=== PATIENT | female | born 1945 | race Two or more races ===

== ENCOUNTER 2020-05-02 18:28 | Emergency (ER) | payer SELFPAY ==
[~2020-05-02] VITALS: Ht 157.5 cm; Wt 61.0 kg
[2020-05-02] MEDS ORDERED: LOSA25TA26 PO (18:37)
[2020-05-02 19:54] LABS: CHLORIDE 107 mEq/L (98-107)
[2020-05-02] MEDS ORDERED: MAGNESIUM 2 G PREMIX 50 ML IV NR (20:00)
[2020-05-02] MEDS ORDERED: POTASSIUM CHLORIDE 20MEQ TABLET SR PO NR ×2 (20:00→22:00)
[2020-05-02 20:11] LABS: BASOPHILS % 0.7 % (0.0-2.0); EOSINOPHILS % 0.4 % (0.0-5.0); HEMATOCRIT. 37.3 % (36.0-48.0); HEMOGLOBIN. 13.2 g/dL (12.0-16.0); LYMPHOCYTES % 34.8 % (20.0-50.0); MEAN CORPUSCULAR HEMOGLOBIN 30.8 pg (28.0-32.0); MEAN CORPUSCULAR VOLUME 87.4 fL (81.0-99.0); MEAN PLATELET VOLUME 8.3 fl (7.4-10.4); MONOCYTES % 11.8 % (2.0-8.0); NEUTROPHILS % 52.3 % (40.0-76.0); PLATELET 371 x1000/uL (130-400); RED BLOOD CELL COUNT 4.27 mill/uL (4.2-5.4); RED CELL DISTRIBUTION WIDTH 14.2 % (11.6-14.6)
[2020-05-02] MEDS ORDERED: ONDANSETRON HCL 4MG/2ML INJ IV PRN (20:15)
[2020-05-02] MEDS ORDERED: CLONIDINE 0.1MG TABLET PO PRN (20:15)
[2020-05-02] MEDS ORDERED: ACETAMINOPHEN 325MG TABLET PO PRN (20:15)
[2020-05-02] MEDS ORDERED: TRAZODONE HCL 50MG TABLET PO PRN (20:15)
[2020-05-02] MEDS ORDERED: HEPARIN 5000 UNITS/ML VIAL SUBCUT SCH (21:00)
[2020-05-02] MEDS: LOSARTAN POTASSIUM 25 MG TABLET PO SCH (21:00)
[2020-05-02] MEDS: KCL 10MEQ/50ML PREMIX 50 ML IV SCH ×3 (21:22→23:00)
[2020-05-03] MEDS: KCL 10MEQ/50ML PREMIX 50 ML IV SCH
[2020-05-03 06:25] LABS: BASOPHILS % 1.4 % (0.0-2.0); EOSINOPHILS % 0.5 % (0.0-5.0); HEMATOCRIT. 37.7 % (36.0-48.0); HEMOGLOBIN. 13.3 g/dL (12.0-16.0); LYMPHOCYTES % 32.7 % (20.0-50.0); MEAN CORPUSCULAR HEMOGLOBIN 31.1 pg (28.0-32.0); MONOCYTES % 12.2 % (2.0-8.0); NEUTROPHILS % 53.2 % (40.0-76.0); PLATELET 346 x1000/uL (130-400); RED BLOOD CELL COUNT 4.28 mill/uL (4.2-5.4); RED CELL DISTRIBUTION WIDTH 13.7 % (11.6-14.6)
[2020-05-03 06:34] LABS: CHLORIDE 114 mEq/L (98-107)
[2020-05-03 06:50] LABS: T4 FREE 1.23 ng/dL (0.76-1.46)
[2020-05-03] MEDS: LOSARTAN POTASSIUM 25 MG TABLET PO SCH (09:31)
[2020-05-03] MEDS ORDERED: AMLODIPINE 10MG TABLET PO SCH (11:45)
[2020-05-03] MEDS ORDERED: POTASSIUM CHLORIDE 20MEQ TABLET SR PO SCH (11:45)
[2020-05-03] MEDS ORDERED: LORAZEPAM 0.5MG TABLET PO PRN (12:15)
[2020-05-03] MEDS ORDERED: CITALOPRAM HYDROBROMIDE 10MG TABLET PO SCH (13:00)
[2020-05-03 17:48] VITALS: BP 141/71
== END 2020-05-03 18:56 | disposition left against medical advice (07) ==
LOC: ER 18:28 → EDBEDREQ 20:09 → EDBEDREQTM 20:09 → CANBEDREQ 05-03 17:50 → ER 05-03 18:56
DX: I49.9 Cardiac arrhythmia, unspecified (principal); I49.3 Ventricular premature depolarization; E87.6 Hypokalemia; R00.2 Palpitations; Z88.0 Allergy status to penicillin; I10 Essential (primary) hypertension; Z90.49 Acquired absence of other specified parts of digestive tract
CPT/HCPCS: 36415; 71045; 80053; 83735; 83880; 84439; 84443; 84484; 85025; 93005; 96365; 96366; 96367; 96372; 99291; J1644; J3475; J3480